=== PATIENT | male | born 1980 | race Caucasian/White ===

== ENCOUNTER 2020-06-03 14:23 | Emergency (ER) | payer SELFPAY ==
[2020-06-03 14:39] VITALS: BP 151/90; PULSE 100; TEMP 98; BMI 41.5
== END 2020-06-03 16:30 | disposition home or self-care (01) ==
LOC: FER 14:23
DX: L03.115 Cellulitis of right lower limb (principal)
CPT/HCPCS: 93971-TC; 99284-25